=== PATIENT | female | born 1955 | race Caucasian/White ===

== ENCOUNTER 2023-10-16 08:31 | Day surgery (SDC) | payer MEDICARE ==
[2023-10-15 10:04] VITALS: BMI 15.9
[2023-10-16 09:24] VITALS: TEMP 98.7
[2023-10-16] MEDS: IV FLUID CONTINUATION 1,000 ML IV ONE (09:24)
[2023-10-16] MEDS: LACTATED RINGERS 1,000 ML IV SCH (09:24)
[2023-10-16] MEDS: LIDOCAINE 1% (10MG/ML) FOR IV START INTRADERMA ONE (09:25)
[2023-10-16] MEDS ORDERED: PROPOFOL 10 MG/ML 20 ML VIAL IV ONE (10:22)
[2023-10-16] MEDS ORDERED: LIDOCAINE 1% INJ 10MG/ML (20 ML MDV) ONE (10:22)
--- NOTE | 2023-10-16 10:47 | P.PCN ---
Date of Procedure: 10/16/23 Procedure(s) Performed: BRIEF HISTORY: Patient is a 67-year-old pleasant white female scheduled for an elective colonoscopy as a part of evaluation of positive Cologuard/screening for colon cancer PROCEDURE PERFORMED: Colonoscopy with biopsy PREOPERATIVE DIAGNOSIS: Positive Cologuard/screening for colon cancer. IV sedation per Anesthesia. PROCEDURE: After informed consent was obtained, the patient, was brought into the endoscopy unit. IV sedation was administered by Anesthesia under continuous monitoring. Digital rectal examination was normal. Initially the Olympus CF-160 flexible video colonoscope was then inserted in the rectum, gradually advanced into the sigmoid colon and further advancement was not possible because of acute angulation in this area. The scope was removed and a pediatric colonoscopy was i then introduced into the rectum and gradually advanced into the cecum without any difficulty. Careful examination was performed as the scope was gradually being withdrawn. Ileocecal valve and the appendiceal orifice were visualized and appeared normal. Prep was excellent. Mucosa of the cecum, ascending colon, transverse colon appeared normal. The descending colon there was a 4 mm polyp that was removed by cold biopsy. Scattered sigmoid diverticulosis seen. Rest of the descending colon, sigmoid colon, and rectum appeared normal. Scattered sigmoid diverticulosis. Retroflexion was performed in the rectum and no lesions were seen. The patient tolerated the procedure well. IMPRESSION: 4 mm ascending colon polyp status post cold biopsy Scattered sigmoid diverticulosis RECOMMENDATIONS: Findings of this examination were discussed with the patient as well as her family.. She was advised to follow the biopsy results. If the biopsy reveals adenoma she can have repeat colonoscopy in 5 years
[2023-10-16 11:21] VITALS: BP 161/82; PULSE 90; RESP 16
== END 2023-10-16 11:22 | disposition home or self-care (01) ==
LOC: ORWHC2ENDO 08:31
PROVIDERS: ATTEND Internal Medicine Gastroenterology
DX: D12.4 Benign neoplasm of descending colon (principal); K57.30 Diverticulosis of large intestine without perforation or abscess without bleeding; J44.9 Chronic obstructive pulmonary disease, unspecified; Z79.51 Long term (current) use of inhaled steroids
CPT/HCPCS: 45380; 88305; J2001; J2704